=== PATIENT | female | born 1980 | race Caucasian/White ===

== ENCOUNTER 2016-06-08 07:03 | Day surgery (SDC) | payer OTHER ==
[2016-06-08 07:52] VITALS: BMI 51.0
[2016-06-08] MEDS ORDERED: VANCOMYCIN 1,000 MG VIAL (RESTRICTED TO ID ONLY) ONE (08:39)
[2016-06-08] MEDS ORDERED: PROPOFOL 20 ML ONE (08:39)
[2016-06-08] MEDS ORDERED: BUPIVACAINE HCL/PF 0.5% (5MG/ML) 10 ML VIAL ONE (09:02)
[2016-06-08] MEDS ORDERED: MIDAZOLAM HCL 2 MG/2 ML SINGLE DOSE VIAL ONE ×2 (09:16→09:38)
--- NOTE | 2016-06-08 09:17 | HP ---
Admitting History and Physical - Admission History of Present Illness: The patient is a 35 yo female with multiple medical problems who presents for a right knee recurrent injury with a ACL tear and painful hardware. She had surgery three years ago and her leg now remains unstable. She denies any history of CP, SOB, cough. The patient has a history of a seizure disorder not on medication. Her last seizure several months ago. There is a medical and neurological clearance in her chart for todays procedure. History Source: Patient Limitations to Obtaining History: No Limitations - Past Medical History AESTHETICIAN: Yes: Seizure (not on medication) Cardiovascular: Yes: HTN. No: Deep Vein Thrombosis Pulmonary: Yes: Asthma, COPD. No: Sleep Apnea Gastrointestinal: Yes: GERD Renal/: No: Renal Failure, Hematuria ...LMP: 05/25/16 ...: No Heme/Onc: No: Bleeding Disorder Psych: Yes: Anxiety, Depression Musculoskeletal: Yes: Other (right shoulder pain/instability) Endocrine: Yes: Diabetes Mellitus (tugal ligation, Right ACL repair) - Smoking History Smoking history: Current every day smoker Have you smoked in the past 12 months: Yes Aproximately how many cigarettes per day: 5 - Alcohol/Substance Use Hx Alcohol Use: No Home Medications - Allergies Allergies/Adverse Reactions: Allergies Allergy/AdvReac Type Severity Reaction Status Date / Time hydrocodone bitartrate Allergy Severe Hives Verified 05/29/16 12:00 [From Vicodin] Penicillins Allergy Severe Difficulty Verified 05/29/16 12:00 Breathing topiramate [From Topamax] Allergy Severe NUMBNESS Verified 05/29/16 12:01 OF FACE,ARMS pepper AdvReac Severe Difficulty Verified 06/08/16 20:11 Breathing - Home Medications Home Medications: Ambulatory Orders Amlodipine Besylate/Benazepril [Lotrel 5-40 mg Capsule] 10 - 20 mg PO DAILY Butalb/Acetaminophen/Caffeine [Fioricet 50-300-40 mg Capsule] 1 each PO TID Cyclobenzaprine HCl [Flexeril -] 10 mg PO TID 04/13/16 Gabapentin [Neurontin] 300 mg PO TID 04/13/16 Hydrochlorothiazide [Hctz -] 25 mg PO DAILY 04/13/16 Insulin Glargine,Hum.rec.anlog [Lantus Solostar PEN (NF)] 40 units SQ HS Metformin HCl [Glucophage] 1,000 mg PO BID 04/13/16 Oxycodone HCl/Acetaminophen [Percocet 10-325 mg Tablet] 1 tab PO TID 04/13/16 Paroxetine HCl [Paxil] 40 mg PO HS 04/13/16 Sitagliptin Phosphate [Januvia] 100 mg PO DAILY 04/13/16 Budesonide/Formeterol Fumarate [SYMBICORT 80/4.5mcg -] 2 inh PO BID 05/29/16 Ipratropium/Albuterol Sulfate [Combivent Respimat Inhal [place]] 2 puff IH ASDIR PRN 05/29/16 Omeprazole 40 mg PO HS 05/29/16 Review of Systems - Review of Systems Constitutional: denies: Chills, Fever Neck: denies: Decreased ROM, Pain on Movement Cardiovascular: reports: Edema (chronic swelling to right lower ext). denies: Chest Pain, Palpitations, Shortness of Breath Respiratory: denies: Cough Gastrointestinal: denies: Abdominal Pain Musculoskeletal: reports: Joint Pain (right knee) Neurological: reports: Seizure (last seizure several months ago and before that more than a year) Hematology/Lymphatic: denies: Easily Bruised, Excessive Bleeding Physical Examination Vital Signs: Vital Signs Temperature 98.9 F 06/08/16 07:45 Pulse Rate 87 06/08/16 07:45 Respiratory Rate 18 06/08/16 07:45 Blood Pressure 141/90 06/08/16 07:45 O2 Sat by Pulse Oximetry (%) 95 06/08/16 07:45 Constitutional: Yes: Well Nourished, Calm HENT: Yes: WNL, Atraumatic, Normocephalic Neck: Yes: WNL, Supple, Trachea Midline Cardiovascular: Yes: WNL, Regular Rate and Rhythm Respiratory: Yes: WNL, Regular, CTA Bilaterally Gastrointestinal: Yes: WNL, Normal Bowel Sounds, Soft, Abdomen, Obese Extremities: No: Calf Tenderness Edema: Yes (slight to RLE) Edema: LLE: 2+, RLE: 2+ Peripheral Pulses WNL: Yes Peripheral Pulses: Left Doralis Pedis: 2+, Right Dorsalis Pedis: 2+ Wound/Incision: Yes: Clean/Dry, Well Approximated Neurological: Yes: WNL, Alert, Oriented ...Motor Strength: LUE, LLE, RUE, RLE Psychiatric: Yes: WNL, Alert, Oriented Imaging - Results X-ray: Other (evidence of hardware in proximal tibia and prior ACL repair) Assessment/Plan 35 yo female for R ACL repair today for tear Continue NPO DVT ppx with left leg SCD/early ambulation IV abx at time of surgery clearance from her medical/neurology doctor in the chart
--- NOTE | 2016-06-08 10:51 | DS ---
Physical Examination Vital Signs: Vital Signs Temperature 98.9 F 06/08/16 07:45 Pulse Rate 87 06/08/16 07:45 Respiratory Rate 18 06/08/16 07:45 Blood Pressure 141/90 06/08/16 07:45 O2 Sat by Pulse Oximetry (%) 95 06/08/16 07:45 Discharge Summary Reason For Visit: ANTERIOR CRUCIATE LIGAMENT TEAR, RIGHT KNEE Condition: Good - Instructions Diet, Activity, Other Instructions: Post Operative Instructions: ACL Reconstruction Dr. Froy Rubio 1. Pain following an ACL reconstruction is variable and can be significant. Some patients will have more pain than others. You have been provided with a prescription for medication that contains a narcotic. You are not allowed to drive while on this medication. You should not take Tylenol (Acetaminophen) when taking the pain medication ( it will result in an overdose). Feel free to take medications such as Ibuprofen or Naprosyn in addition to the pain medicine if you do not have any problems with the NSAID class of medications. 2. You should not remove the bandages for 72 hours unless directed otherwise. You may shower at that point. You are not allowed to bathe or go swimming until the sutures are removed. Put band-aids on the sutures after your shower and do not put any creams or lotions over the incisions. 3. A.You are NOT allowed to put all your weight on the leg. You SHOULD bend your knee. B. USE CRUTCHES C. DO NOT LIE IN BED ALL DAY. THAT INCREASES THE RISKS OF BLOOD CLOTS D. YOU MUST TAKE ASPIRIN, 325 MG TWICE A DAY FOR 2 WEEKS FOR BLOOD CLOT PREVENTION THIS DOES NOT BRING RISK TO ZERO SO YOU MUST KEEP MUSCLES MOVING. 4. Getting the knee straight is your most important goal during the first 72 hours following an ACL reconstruction. Try not to lie down with a pillow under your knee. Instead the pillow should be under your ankle, thus allowing you to push your knee straight down into the bed. This is a very important milestone to achieve before your first post-surgery visit with me. 5. Swelling around the knee is normal following an ACL reconstruction. 6. The area around the knee and along the front of your rae will also become swollen and black and blue. 7. Apply ice to the knee for 15 min every hour or so. You may continue this for as many days as you like. 8. Please call the office to schedule a visit to have your sutures removed. 9. If for any reason you believe you may have an infection or are concerned, please feel free to call me. I can be reached through our office number 24 hours a day. 10. Please call our office with any questions; we will review the surgical findings during your post operative visit. Disposition: HOME - Home Medications Comprehensive Discharge Medication List: Ambulatory Orders Amlodipine Besylate/Benazepril [Lotrel 5-40 mg Capsule] 10 - 20 mg PO DAILY Butalb/Acetaminophen/Caffeine [Fioricet 50-300-40 mg Capsule] 1 each PO TID Cyclobenzaprine HCl [Flexeril -] 10 mg PO TID 04/13/16 Gabapentin [Neurontin] 300 mg PO TID 04/13/16 Hydrochlorothiazide [Hctz -] 25 mg PO DAILY 04/13/16 Insulin Glargine,Hum.rec.anlog [Lantus Solostar PEN (NF)] 40 units SQ HS Metformin HCl [Glucophage] 1,000 mg PO BID 04/13/16 Oxycodone HCl/Acetaminophen [Percocet 10-325 mg Tablet] 1 tab PO TID 04/13/16 Paroxetine HCl [Paxil] 40 mg PO HS 04/13/16 Sitagliptin Phosphate [Januvia] 100 mg PO DAILY 04/13/16 Budesonide/Formeterol Fumarate [SYMBICORT 80/4.5mcg -] 2 inh PO BID 05/29/16 Ipratropium/Albuterol Sulfate [Combivent Respimat Inhal [place]] 2 puff IH ASDIR PRN 05/29/16 Omeprazole 40 mg PO HS 05/29/16
--- NOTE | 2016-06-08 10:51 | OP ---
Operative Note - Note: Operative Date: 06/08/16 Pre-Operative Diagnosis: RIGHT KNEE ACL TEAR, MMT, PAINFUL HARDWARE Operation: RIGHT KNEE WALT, PMM, ACL RECON WITH ALLOGRAFT Post-Operative Diagnosis: Same as Pre-op Surgeon: Froy Rubio Anesthesia: Spinal Operative Report Dictated: Yes
[2016-06-08] MEDS ORDERED: EPINEPHrine 1:1,000 1 MG/1 ML - 30ML VIAL (INJECTION) ONE (11:17)
[2016-06-08] MEDS ORDERED: ONDANSETRON 4 MG/2 ML VIAL IVPUSH PRN (12:27)
[2016-06-08] MEDS ORDERED: PROMETHAZINE HCL 25 MG/1 ML VIAL IVPUSH PRN (12:27)
[2016-06-08] MEDS ORDERED: oxyCODONE HCL 5 MG TABLET PO PRN (12:27)
[2016-06-08] MEDS ORDERED: LACTATED RINGERS SOLUTION 1,000 ML IV SCH (12:30)
--- NOTE | 2016-06-08 13:08 | SURG ---
Surgery Dining Room Tables Set Up Attendant Note Dining Room Tables Set Up Attendant: Larissa Frias PA-C Date of Service: 06/08/16 Diagnosis: RIGHT KNEE ACL TEAR, MMT, PAINFUL HARDWARE Procedure: RIGHT KNEE WALT, PMM, ACL RECON WITH ALLOGRAFT I was present for the entirety of the operative procedure. For further detail, please refer to operative report. Visit type - Case Type Case Type: Scheduled Admission - Emergency Emergency Visit: No - New patient This patient is new to me today: Yes Date on this admission: 06/08/16 - Critical Care Critical Care patient: No
[2016-06-08] MEDS ORDERED: diphenhydrAMINE HCL 25 MG CAPSULE (FP) PO ONE ×2 (13:36→13:52)
--- NOTE | 2016-06-08 13:58 | PN ---
Progress Note (short form) - Note Progress Note: Called by nurse to evaluate patient post-op on floor. Patient states she has a known allergy to black pepper and is currently experiencing itching in her throat and face. Symptoms are largely resolved with 25 benadryl orally. Pt is instructed to stay for an additional dose of benadryl 25 orally. She verbally agrees. AVSS. No SOB noted. No urticaria noted.
[2016-06-08] MEDS ORDERED: diphenhydrAMINE HCL 12.5 MG/5 ML UNIT-DOSE CUPS PO ONE (13:59)
[2016-06-08 20:00] VITALS: BP 138/87; PULSE 92; TEMP 98
[2016-06-09] MEDS ORDERED: ASPIRIN 325 MG ENTERIC COATED TABLET (FP) PO SCH (10:00)
--- NOTE | 2016-06-12 13:33 | PATH ---
Surgical Pathology Report Patient Name: CHRISTINE RAMOS Med. Rec. #: [id number] /Age/Gender: 1980 (Age: 35) / F Account: [id number] [facility] Taken: 06/08/2016 Received: 06/08/2016 Reported: 06/12/2016 Physicians: Froy Rubio M.D. Specimen(s) Received A: RIGHT KNEE HARDWARE B: RIGHT KNEE SHAVINGS Clinical History Anterior cruciate ligament tear right knee Final Diagnosis A. ORTHOPEDIC HARDWARE, RIGHT KNEE, REMOVAL: METALLIC SCREW (GROSS ONLY). B. RIGHT KNEE, ARTHROSCOPIC SHAVINGS: PORTIONS OF SYNOVIUM, FIBROCARTILAGE, AND BONE CONSISTENT WITH ARTHROSCOPIC SHAVINGS. Electronically Signed Ihsan Davis M.D. Gross Description A. Received fresh, labeled "right knee hardware," is a 3.5 cm in length hernandez metallic screw. No soft tissue is present. No sections are submitted, gross only. B. Received in formalin, labeled "right knee shavings," is a 3.0 x 2.5 x 0.3 cm aggregate of nickerson soft tissue fragments admixed with blood clot. A [employer] portion is submitted in one cassette. 06/11/201606/11/2016
== END 2016-06-08 14:15 | disposition home or self-care (01) ==
LOC: FASU 07:03
PROVIDERS: ATTEND Orthopaedic Surgery
PROC: 0MUN47Z Supplement Right Knee Bursa and Ligament with Autologous Tissue Substitute, Percutaneous Endoscopic Approach (ICD-10-PCS; 2016-06-08)
PROC: 0SPC04Z Removal of Internal Fixation Device from Right Knee Joint, Open Approach (ICD-10-PCS; 2016-06-08)
PROC: 0SBC4ZZ Excision of Right Knee Joint, Percutaneous Endoscopic Approach (ICD-10-PCS; principal; 2016-06-08 09:49)
DX: S83.511A Sprain of anterior cruciate ligament of right knee, initial encounter (principal); S83.241A Other tear of medial meniscus, current injury, right knee, initial encounter; T84.84XA Pain due to internal orthopedic prosthetic devices, implants and grafts, initial encounter; X58.XXXA Exposure to other specified factors, initial encounter; Y93.9 Activity, unspecified; Y92.9 Unspecified place or not applicable
CPT/HCPCS: 73560-TC-RT; 84703; 88300-TC; 88304-TC; 94760

== ENCOUNTER 2018-03-02 23:50 | Emergency (ER) | payer SELFPAY ==
[2018-03-02 23:55] VITALS: BP 152/108; PULSE 108; TEMP 98.9; BMI 34.7
[2018-03-03] MEDS ORDERED: levETIRAcetam 500 MG/5 ML INJECTION VIAL IVPB ONE (00:03)
--- NOTE | 2018-03-03 00:27 | PDOC ---
History of Present Illness - General Chief Complaint: Seizure Stated Complaint: SEIZURE Time Seen by Provider: 03/03/18 00:01 History Source: Patient Exam Limitations: No Limitations - History of Present Illness Initial Comments: 03/03/18 00:07 Patient is a 37-year-old female with history of seizure, manic depressive disorder, insomnia, anxiety, OCD, migraine, lupus, RA, OA, MRSA, vitamin D deficiency, vitamin C deficiency, torn ACL right, rotator cuff tear right brought in by ambulance for seizure activity 2 tonight. Per daughter with the patient, she witness one of the seizure episode, which are concurrent lasting for about 1-2 minutes each. States the first seizure she came and found mother on the floor, her and helped to pick the patient up, and took her to the couch where she subsequently had another seizure. States her eyes started twitching, funny movement then her toes curled back then she had shaking movements. No bowel or bladder incontinence patient states she's tastes blood. EMS was called and on arrival found patient postictal and had some confusion on waking up but quickly resolved. Fingerstick in the field was 148, BP 171/138. Per patient she has not taken any seizure medication since November 2013, because she ran out. States she she saw primary care doctor who gave her referral to the neurologist, however she has not made the appointment since November. Patient is requesting something for pain because she ran out of her pain meds and is complaining of a occiput headache headache, swelling to the occiput, left jaw pain. PMD: Dr. Katie Mahoney PMHX: as above PSOCHX: (+) cig ALL: PCN, topiramate, hydrocodone GENERAL/CONSTITUTIONAL: [No fever or chills. No weakness. No weight change.] HEAD, EYES, EARS, NOSE AND THROAT: [No change in vision. No ear pain or discharge. No sore throat.] CARDIOVASCULAR: [No chest pain or shortness of breath.] RESPIRATORY: [No cough, wheezing, or hemoptysis.] GASTROINTESTINAL: [No nausea, vomiting, diarrhea or constipation. No rectal bleeding.] GENITOURINARY: [No dysuria, frequency, or change in urination.] MUSCULOSKELETAL: [No joint or muscle swelling or pain. No neck or back pain.] SKIN AND BREASTS: [No rash or easy bruising.] NEUROLOGIC: (+) headache, vertigo, loss of consciousness, or loss of sensation.] PSYCHIATRIC: [No depression or anxiety.] ENDOCRINE: [No increased thirst. No abnormal weight change.] HEMATOLOGIC/LYMPHATIC: [No anemia, easy bleeding, or history of blood clots.] ALLERGIC/IMMUNOLOGIC: [No hives or skin allergy. No latex allergy.] GENERAL: [The patient is awake, alert, and fully oriented, in no acute distress. ] HEAD: [Normal with (+) signs of trauma - hematoma left occiput.] EYES: [Pupils equal, round and reactive to light, extraocular movements intact, sclera anicteric, conjunctiva clear.] ENT: [Ears normal, nares patent, oropharynx clear without exudates. Moist mucous membranes.] NECK: [Normal range of motion, supple without lymphadenopathy, JVD, or masses.] LUNGS: [Breath sounds equal, clear to auscultation bilaterally. No wheezes, and no crackles.] HEART: [Regular rate and rhythm, normal S1 and S2 without murmur, rub.] ABDOMEN: Obese, Soft, nontender, normoactive bowel sounds. No guarding, no rebound. No masses.] EXTREMITIES: [Normal range of motion, no edema. No clubbing or cyanosis. No cords, erythema, (+) tenderness right shoulderchronic ] NEUROLOGICAL: [Cranial nerves II through XII grossly intact. Normal speech, normal gait.] PSYCH: [Normal mood, normal affect.] SKIN: [Warm, Dry, normal turgor, (+) healing rashes over b/l upper extremities.] Past History - Past Medical History Allergies/Adverse Reactions: Allergies Allergy/AdvReac Type Severity Reaction Status Date / Time hydrocodone bitartrate Allergy Severe Hives Verified 03/02/18 23:51 [From Vicodin] Penicillins Allergy Severe Difficulty Verified 03/02/18 23:51 Breathing topiramate [From Topamax] Allergy Severe NUMBNESS Verified 03/02/18 23:51 OF FACE,ARMS pepper (genus Capsicum) AdvReac Severe Difficulty Verified 03/02/18 23:51 [pepper] Breathing Home Medications: Ambulatory Orders Amlodipine Besylate/Benazepril [Lotrel 5-40 mg Capsule] 10 - 20 mg PO DAILY Butalb/Acetaminophen/Caffeine [Fioricet 50-300-40 mg Capsule] 1 each PO TID Cyclobenzaprine HCl [Flexeril -] 10 mg PO TID 04/13/16 Gabapentin [Neurontin] 300 mg PO TID 04/13/16 Hydrochlorothiazide [Hctz -] 25 mg PO DAILY 04/13/16 Insulin Glargine,Hum.rec.anlog [Lantus Solostar PEN (NF)] 40 units SQ HS Metformin HCl [Glucophage] 1,000 mg PO BID 04/13/16 Oxycodone HCl/Acetaminophen [Percocet 10-325 mg Tablet] 1 tab PO TID 04/13/16 Paroxetine HCl [Paxil] 40 mg PO HS 04/13/16 Sitagliptin Phosphate [Januvia] 100 mg PO DAILY 04/13/16 Budesonide/Formeterol Fumarate [SYMBICORT 80/4.5mcg -] 2 inh PO BID 05/29/16 Ipratropium/Albuterol Sulfate [Combivent Respimat Inhal [place]] 2 puff IH ASDIR PRN 05/29/16 Omeprazole 40 mg PO HS 05/29/16 Anemia: No Asthma: Yes Cancer: No Cardiac Disorders: No CVA: No COPD: Yes CHF: No Dementia: No Diabetes: Yes GI Disorders: Yes (GERD) Disorders: No HTN: No Hypercholesterolemia: No Liver Disease: No Seizures: Yes (NO MEDS) Thyroid Disease: No - Surgical History Abdominal Surgery: No Appendectomy: No Cardiac Surgery: No Cholecystectomy: No Lung Surgery: No Neurologic Surgery: No Orthopedic Surgery: Yes (R knee ACL REPAIR, 07/26,[facility] GOT INFECTED) - Suicide/Smoking/Psychosocial Hx Smoking History: Never smoked Have you smoked in the past 12 months: No Number of Cigarettes Smoked Daily: 5 Information on smoking cessation initiated: No Hx Alcohol Use: No Drug/Substance Use Hx: No Substance Use Type: None Hx Substance Use Treatment: No *Physical Exam - Vital Signs Last Vital Signs Temp Pulse Resp BP Pulse Ox 98.9 F 108 H 18 152/108 H 98 03/02/18 23:51 03/02/18 23:51 03/02/18 23:51 03/02/18 23:51 03/02/18 23:51 ED Treatment Course - RADIOLOGY Radiology Studies Ordered: Category Date Time Status HEAD CT WITH CONTRAST [CT] Stat CT Scan 03/03/18 00:03 Ordered Medical Decision Making - Medical Decision Making 03/03/18 00:07 Patient is a 37-year-old female with history of seizure, manic depressive disorder, insomnia, anxiety, OCD, migraine, lupus, RA, OA, MRSA, vitamin D deficiency, vitamin C deficiency, torn ACL right, rotator cuff tear right brought in by ambulance for seizure activity 2 tonight with head injury. ct head, labs keppra reassess. Directly after ordering treatment she didn't want to sign out AMA. States she has to "take care of her 15-year-old and 12-year-old child because they are not safe at the place where it they are currently. Explained to patient that she could have another seizure" or self injury to her head again but still wants to sign out AMA *DC/Admit/Observation/Transfer Diagnosis at time of Disposition: Seizure - Discharge Dispostion Disposition: AGAINST MEDICAL ADVICE Condition at time of disposition: Fair - Referrals - Patient Instructions - Post Discharge Activity
== END 2018-03-03 00:13 | disposition left against medical advice (07) ==
LOC: JER 23:50
DX: G40.909 Epilepsy, unspecified, not intractable, without status epilepticus (principal); R56.9 Unspecified convulsions; E11.9 Type 2 diabetes mellitus without complications; Z79.4 Long term (current) use of insulin; F31.89 Other bipolar disorder; F42.9 Obsessive-compulsive disorder, unspecified; F41.9 Anxiety disorder, unspecified; G47.00 Insomnia, unspecified; M06.9 Rheumatoid arthritis, unspecified; Z87.39 Personal history of other diseases of the musculoskeletal system and connective tissue; Z86.14 Personal history of Methicillin resistant Staphylococcus aureus infection; E54 Ascorbic acid deficiency; E55.9 Vitamin D deficiency, unspecified
CPT/HCPCS: 99281-25